=== PATIENT | male | born 1995 | race Two or more races ===

== ENCOUNTER 2021-05-21 12:15 | Emergency (ER) | payer OTHER ==
[2021-05-21 12:25] VITALS: BP 108/67; PULSE 75; TEMP 97.9; BMI 22.3
[2021-05-21] MEDS ORDERED: IBUPROFEN 600 MG TABLET (FP) PO ONE ×2 (12:50→12:56)
== END 2021-05-21 13:47 | disposition home or self-care (01) ==
LOC: JERFT 12:15 → JER 12:15 → JERFT 13:47
DX: R07.9 Chest pain, unspecified (principal)
CPT/HCPCS: 71046-TC-FY; 93005; 93010; 99284-25